=== PATIENT | male | born 1975 | race Hispanic/Latino ===

== ENCOUNTER 2018-03-07 20:48 | Inpatient (IN) | payer OTHER ==
[~2018-03-07 20:48] MED LIST: ISOVUE-370 76%-LOCM 1 ML ONE
[2018-03-07] MEDS ORDERED: Acetaminophen 500 MG TAB ONE (21:15)
--- NOTE | 2018-03-07 21:45 | RAD ---
PORTABLE CHEST ONE VIEW: 03/07/18 at 8:31 p.m. HISTORY: Chest pain. FINDINGS: The heart size is normal. There is elevation of the right hemidiaphragm. No lobar consolidation, pneu mothoraces, fallon pulmonary edema or pleural effusions are seen. IMPRESSION: No acute process. POS: [facility]
[2018-03-07] MEDS ORDERED: Ketorolac Tromethamine 60 MG/2 ML VIAL ONE (21:55)
[2018-03-07 22:40] LABS: Hemoglobin 13.2 g/dL (14.0-18.0); Mean Corpuscular HGB CONC 35.6 g/dL (32.0-36.0); Mean Corpuscular Hemoglobin 32.8 pg (27.0-31.0); Mean Platelet Volume 6.2 fL (7.4-10.4); Platelet Count 314 thou/uL (130-400); RBC Distribution Width 11.3 % (11.5-14.5); Red Blood Cell (RBC) Count 4.02 mill/uL (4.70-6.10)
[2018-03-07 22:54] LABS: Band 12 % (5-11); Lymphocytes 5 % (21-51); MDiff Complete? YES; Monocytes 8 % (0-10); Neutrophil 75 % (42-75)
[2018-03-07 22:55] LABS: Anion Gap 15 mmol/L (10-20); BUN (Urea Nitrogen) 14 mg/dL (8.9-20.6); Calc. Creatinine Clearance 0 mL/min (70-130); Calcium 8.8 mg/dL (7.8-10.44); Carbon Dioxide 21 mmol/L (22-29); Chloride 104 mmol/L (98-107); Estimated GFR-MDRD 90; Glucose 129 mg/dL (70-105); Potassium 3.9 mmol/L (3.5-5.1); Sodium 136 mmol/L (136-145)
--- NOTE | 2018-03-07 23:45 | CT ---
CT PULMONARY ANGIOGRAM WITH IV CONTRAST AND 3D POSTPROCESSIN03/07/18 HISTORY: Right sided chest pain, cough, fever, inability to take a deep breath. FINDINGS: There is good contrast opacification of the pulmonary artery vasculature without filling defects to s uggest pulmonary embolism. The thoracic aorta is well opacified without aneurysm or dissection. No pl eural or pericardial effusions are seen. There are scattered patchy focal areas of consolidation, niharika e with internal cavities. No pleural or pericardial effusions are seen. No pneumothoraces identified. There are degenerative changes in the spine. IMPRESSION: 1. No CT evidence of pulmonary embolism. 2. Scattered patchy focal areas of consolidation, some with cavitation. These are most likely du e to infection, less likely malignancy/metastatic disease. A followup exam is recommended after a cou rse of antibiotics. CODE T POS: [facility]
[2018-03-08] MEDS ORDERED: Cefepime 2 GM VIAL ONE (00:45)
[2018-03-08 01:06] LABS: Bilirubin Negative (Negative); Blood, Urine Negative (Negative); Clarity CLEAR (Clear); Glucose, Urine (Dipstick) Negative (Negative); Leukocyte Negative (Negative); Nitrite Negative (Negative); Protein, Urine (Dipstick) Negative (Neg-Trace); pH, Urine 6.5 (5.0-9.0)
[2018-03-08 01:10] LABS: Specific Gravity, Urine 1.045 (1.002-1.036)
[2018-03-08] MEDS ORDERED: Tuberculin PPD 0.1 ML VIAL I-DERMAL SCH (02:15)
[2018-03-08] MEDS ORDERED: HYDROcodone/Acetaminophen 5/325 mg Tablet ONE (02:19)
[2018-03-08 02:28] LABS: Troponin I Less than 0.010 ng/mL (< 0.028)
[2018-03-08 02:38] LABS: Amphetamine Not Detected (NotDetected); Barbiturates Screen Not Detected (NotDetected); Benzodiazepine Screen Not Detected (NotDetected); Cocaine Metabolite Screen Not Detected (NotDetected); Medtox Control Line Valid? VALID (VALID); Medtox Reader # READER 4; Methadone Not Detected (NotDetected); Methamphetamine Not Detected (NotDetected); Opiate Screen Not Detected (NotDetected); Oxycodone Screen Not Detected (NotDetected); Phencyclidine (PCP) Not Detected (NotDetected); THC/Cannabinoid Screen Not Detected (NotDetected); Tricyclic Screen Not Detected (NotDetected)
[2018-03-08] MEDS ORDERED: Enoxaparin Sodium 40 MG/0.4 ML SYRINGE SC SCH (03:00)
[2018-03-08 03:10] LABS: HIV (1/2) Antibody/Antigen Non-Reactive (NonReactive); HIV 1/2 INDEX 0.17 S/CO (<1.00)
--- NOTE | 2018-03-08 03:15 | PDOC.FPRHP ---
- History of Present Illness Chief Complaint: Lung pain History of Present Illness: 43 yo previously healthy incarcerated male presents for 1 day hx of "lung pain" . Pain was pleuritic, started in his rt back and wrapped around to the front, described as sharp in nature and 8/10 on exam. Pain began 1 night prior, waking pt out of sleep, and was constant. Certain movements made the pain worse such as turning his head, walking, and deep breathing. Staying still helped the pain , and medicine helped the pain. Today he started having fevers, headache, feeling SOB, and sweating. Pt mentioned a bump on his rt jawline that he thought was a pimple that started yesterday. He tried to "pop" it. He received antibiotics for the bump from the [facility] staff. He went to see a dentist and got an xray because there was concern for an oral abscess, but pt stated that it turned out normal. Pt denied cough, nausea/vomiting, or any weight changes. In the ED, pt received NS 2500 ml, 2g cefepime and 1g vancomycin. CXR was normal. CTA showed scattered patchy focal areas of consolidation with some cavitation. He was sent to medical floor to a negative pressure room because of concern for TB. - Allergies/Adverse Reactions Allergies Allergy/AdvReac Type Severity Reaction Status Date / Time No Known Drug Allergies Allergy Verified 03/08/18 03:57 - Home Medications Medication Instructions Recorded Confirmed Type No Known [No Known] 03/08/18 03/08/18 History - History PMHx: none PSHx: none FHx: DM and HTN in mother; denied heart problems or cancers Social: 23 PY hx, denied alcohol or drug use - Review of Systems General: reports: fever/chills, other (denied weight loss, + for headaches) Eyes: denies: vision changes ENT: reports: other (denied sore throat). denies: nasal congestion, rhinorrhea Respiratory: reports: shortness of breath. denies: cough, congestion Cardiovascular: reports: chest pain. denies: edema Gastrointestinal: denies: nausea, vomiting, diarrhea, constipation, abdominal pain, GI bleeding Genitourinary: denies: dysuria Skin: denies: rashes Neurological: denies: numbness, weakness Psychological: denies: anxiety, depression - Vital signs BP 121/19, P100, R 32, Tmax 103.2, O2 97 on RA - Physical Exam Constitutional: awake, alert and oriented, other (Patient in obvious pain/ distress, appears tired, sweating, shaking) HEENT: normocephalic and atraumatic, PERRLA, EOMI, conjunctiva clear Chest: no-tender to palpation Heart: RRR, normal S1/S2, no murmurs/rubs/gallops, pulses present Lungs: other (crackles on left base, quiet expiratory wheeze on rt base) Abdomen: soft, non-tender, bowel sounds present, no masses/distention Musculoskeletal: normal structure, normal tone Skin: good turgor, capillary refill <2 seconds Psychiatric: good judgment and insight FMR H&P: Results - Labs Result Diagrams: 03/07/18 22:29 03/07/18 22:29 Lab results: WBC 15.0 thou/uL (4.8-10.8) H 03/07/18 22:29 Hgb 13.2 g/dL (14.0-18.0) L 03/07/18 22: Hct 37.0 % (42.0-52.0) L 03/07/18 22:29 MCV 92.0 fL (78.0-98.0) 03/07/18 22: Plt Count 314 thou/uL (130-400) 03/07/18 22:29 Band Neuts % (Manual) 12 % (5-11) H 03/07/18 22:29 Sodium 136 mmol/L (136-145) 03/07/18 22:29 Potassium 3.9 mmol/L (3.5-5.1) 03/07/18 22:29 Chloride 104 mmol/L (98-107) 03/07/18 22:29 Carbon Dioxide 21 mmol/L (22-29) L 03/07/18 22:29 BUN 14 mg/dL (8.9-20.6) 03/07/18 22:29 Creatinine 0.92 mg/dL (0.6-1.3) 03/07/18 22: Glucose 129 mg/dL (70-105) H 03/07/18 22:29 Lactic Acid 0.9 mmol/L (0.5-2.2) 03/07/18 22: Calcium 8.8 mg/dL (7.8-10.44) 03/07/18 22:29 Urine Ketones Negative mg/dL (Negative) 03/08/18 00:56 Urine Blood Negative (Negative) 03/08/18 00:56 Urine Nitrite Negative (Negative) 03/08/18 00:56 Ur Leukocyte Esterase Negative (Negative) 03/08/18 00:56 FMR H&P: A/P - Problem List (1) Atypical chest pain Current Visit: No Status: Acute Code(s): R07.89 - OTHER CHEST PAIN (2) Sepsis Current Visit: No Status: Acute Code(s): A41.9 - SEPSIS, UNSPECIFIED ORGANISM - Plan 43 yo previously healthy incarcerated male presents with atypical chest pain, probably 2/2 to pneumonia. Atypical chest pain probably 2/2 to pneumonia -Pleuritic chest pain, fever, headache, tachycardia, tachypnea, -CTA: showing patchy pleural infiltrates and cavitary lesions (at apex) -EKG: shows sinus tach -Trop negx1 -Incarcerated with cavitary lesions, so pt at risk for TB- placed in negative pressure room. No hx of weight loss or cough, pain and fevers appear to be sudden onset. Quantiferon gold, TB skin test pending -Urine legionella antigen, strep pneumo antigen, HIV, UDS pending -Blood cultures pending -Cefepime and Vanc scheduled (03/07) Pneumonia -CTA showing patchy pleural infiltrates and cavitary lesions (at apex) -See above Sepsis -On presentation pt had fever, elevated WBC, tachycardia, tachypnea, with probable source of lung -Pt received Cefepime and Vanc -blood cultures pending -fluid resuscitated with 2500 ml NS FMR H&P: Upper Level - Pertinent history 43M from [facility] presents with complaint of 1 day chest pain. It started this morning. He never had this type of pain before. Located at mid back, right side. Worse with deep breathing . Described as sharp, radiating to front chest. No relieving factor. No known inciting factor. Associated with a fever that started same time. Unknown how high fever was. Recently he was sick and had an unknown antibiotic for bump on his skin. He does not know what it is. PMH: Patient denies cardiac, pulm or oncological issues. PSH: Denies surgery Allergies: NKDA Med: Denies medication beside recent abx for skin issue FHx: Denies family history of cardiac or pulm issues Social: Incarcerated. Denies drug use. Hx tobacco use. ROS: Gen: Endorse fever HEENT: Denies cough. Endorses a bump on his chin that is being treated with abx from half-way. CV: RRR with no apparent m/g/r Resp: Endorses dyspnea, dyspnea with deep breathing. GI: Deny abd pain, nausea : Denies dysuria Derm: Endorse skin nodule under chin in lomas line that is tender. - Pertinent findings Gen: NAD, obese HEENT: Normocephalic, sclera not injected, .5 cm nodule palpated on along right mandible Resp: Good air movement. Crackles heard on left lung field. CV: RRR with no apparent m/g/r Abg: Normoactive bowel, not tneder to palpation. Ext: No edema. Psych: Grossly alert and oriented Neuro: No obvious focal deficit. WBC 15 Trop 0.01 Lactic acid 0.9 UA: Neg UDS: Neg CXR: No acute process CTA: No PE, area of focal opacities with cavitary lesion. - Plan Date/Time: 03/08/18 0309 I, [Kenton Dawson], have evaluated this patient and agree with findings/plan as outlined by underwriting internship resident. Pertinent changes/additions are listed here. 1. Healthcare acquired pneumonia: Chest pain is likely pleuritic in nature, secondary to likely infection. Patient from half-way, with CT scan concerning for possible pulmonary infection. Treatment plan for vancomycin 1.25 g q 12 hr, cefepime 2 g q 8hr. Additional studies of legionella and strep antigen. Quantiferon gold/tb skin for TB rule out. 2. Sepsis secondary to pneumonia: Patient been adequately resuscitated. Will treat as in problem 1.
[2018-03-08] MEDS ORDERED: Ondansetron HCl/PF 4 MG/2 ML Vial IVP PRN (03:19)
[2018-03-08] MEDS ORDERED: Sodium Chloride 0.9% 1,000 ML IV SCH (03:19)
[2018-03-08] MEDS ORDERED: Ondansetron ODT 4 MG TAB SL PRN (03:19)
[2018-03-08] MEDS: Acetaminophen 325 MG TAB PO PRN ×2 (03:36→13:15)
[2018-03-08 05:55] LABS: Hemoglobin 12.3 g/dL (14.0-18.0); Mean Corpuscular HGB CONC 33.9 g/dL (32.0-36.0); Mean Corpuscular Hemoglobin 31.9 pg (27.0-31.0); Mean Platelet Volume 6.6 fL (7.4-10.4); Platelet Count 280 thou/uL (130-400); RBC Distribution Width 11.6 % (11.5-14.5); Red Blood Cell (RBC) Count 3.84 mill/uL (4.70-6.10); White Blood Cell (WBC) Count 15.5 thou/uL (4.8-10.8)
[2018-03-08 06:02] LABS: Anion Gap 15 mmol/L (10-20); BUN (Urea Nitrogen) 13 mg/dL (8.9-20.6); Calc. Creatinine Clearance 121 mL/min (70-130); Calcium 8.1 mg/dL (7.8-10.44); Carbon Dioxide 20 mmol/L (22-29); Chloride 106 mmol/L (98-107); Estimated GFR-MDRD 85; Glucose 122 mg/dL (70-105); Potassium 4.2 mmol/L (3.5-5.1); Sodium 137 mmol/L (136-145)
[2018-03-08 06:12] LABS: Band 21 % (5-11); Lymphocytes 1 % (21-51); MDiff Complete? YES; Monocytes 7 % (0-10); Neutrophil 71 % (42-75)
--- NOTE | 2018-03-08 06:18 | PDOC.FM ---
- Subjective Subjective: Mr Soria is a 43yo male presenting with SOB, diaphoresis, BYRD and fever. Reports 5lb wt loss since last weighed, rigors and chills yesterday morning. Another inmate complained of similar "pinched nerve" back pain the day prior. Reports growing up in [place] and has not traveled anywhere else in [place] or out of [place] or cave exposure. Denies cough, hemoptysis, mouth ulcers, iv drug use. - Objective MAR Reviewed: Yes Vital Signs & Weight: Vital Signs (12 hours) Temp Pulse Resp BP Pulse Ox 03/08/18 03:10 99.9 F H 83 16 102/62 93 L Weight Weight 86.438 kg Result Diagrams: 03/08/18 01:53 03/08/18 01:53 Phys Exam - Physical Examination Constitutional: NAD nodule on right mandible Cardiovascular: RRR, no significant murmur Gastrointestinal: soft, non-tender, positive bowel sounds Musculoskeletal: no edema, pulses present Psychiatric: normal affect, A&O x 3 Skin: cap refill <2 seconds Dx/Plan (1) Pneumonia Code(s): J18.9 - PNEUMONIA, UNSPECIFIED ORGANISM Status: Acute (2) Atypical chest pain Code(s): R07.89 - OTHER CHEST PAIN Status: Acute (3) Sepsis Code(s): A41.9 - SEPSIS, UNSPECIFIED ORGANISM Status: Acute - Plan Plan: Sepsis 2/2 suspected pneumonia - Initially tachycardic 100, fever 103.2, WBC 15.5, tachypnea 32 - Currently incarcerated - CTA: patchy infilatrates with cavitary lesions in apex - Cont Cefepime an Vanc - Quantiferon gold, TB skin test for TB r/o - Urine legionella pending, pt not hyponatremic, denies diarrhea - Strep pneumo Ag pending - HIV neg - Blood & sputum cx pending - Checking RPR, Hep B & C - 2.5L NS in ED - LR @ 125ml/hr - Consult Pulm Atypical Chest pain, likely due to pneumonia - Trops neg x1 - CTA neg for PE Current Incarceration - UDS neg - Need to rule out TB with cavitary lesions Code Status: Full code
--- NOTE | 2018-03-08 08:52 | HP ---
I have discussed the case with Dr. Latanya Ya and agree with her assessment and plan. I have examined the patient. Mr. Soria is incarcerated 43-year-old male who presented with several days o f productive cough, chest pain, shortness of breath. Subsequent workup upon arriving in our hospital involved a chest x-ray which was normal, but a CT scan which showed possible cavitary lesions consis tent with tuberculosis. The patient has no history of exposure to tuberculosis to his knowledge. He has been admitted for antibiotics and for further workup of possible tuberculosis. PHYSICAL EXAMINATION: GENERAL: He is awake, alert, in no distress. No respiratory distress. He is alert and oriented. VITAL SIGNS: His blood pressure is 120/85, his pulse rate is 92, respirations are currently 24. His initial temperature was 103.2. EARS, NOSE AND THROAT: No erythema or exudate. NECK: Supple. CARDIAC: The PMI is in the fifth intercostal space. No guarding, no murmurs or rubs noted. LUNGS: There are moist rales at the right mid lung field and left base. No consolidation noted. No respiratory distress or use of accessory muscles. NEUROLOGIC: No focal deficits. LABORATORY DATA: CBC is 15,000, hemoglobin is 13.2, hematocrit is 37 with an MCV of 92. Chemistries : Sodium 136, potassium 3.9, chloride 104, bicarbonate 21, BUN 14, creatinine 0.92, glucose 129. Ur ine clear. Toxicology screen negative. HIV negative. Chest x-ray: No acute process. Chest CT, no evidence of pulmonary embolus. Scattered patchy focal areas of consolidation, some cough with cavitation. These are felt to be most likely due to infectio n less likely due to malignancy. ASSESSMENT: Pneumonia, possible tuberculosis. PLAN: We will continue broad spectrum antibiotics. We have obtained a QuantiFERON gold skin test. We will obtain orchestra leader sputum for AFB stain and culture.
[2018-03-08] MEDS: Cefepime 2 GM in Sodium Chloride 0.9% 100 ML IVPB SCH ×2 (09:13→16:52)
[2018-03-08 09:51] LABS: HBSAB Concentration 1.77 mIU/mL; HBSAg Index 0.21 S/CO (0-0.99); Hep B Core Total Ab Non-Reactive (NonReactive); Hep B Core Total Index 0.07 S/CO (0-0.79); Hep B Surf AB Non-Reactive (NonReactive); Hep B Surf Ag Non-Reactive S/CO (NonReactive); Hep C IgG Ab Non-Reactive (NonReactive); Hep C Index 0.16 S/CO (0-0.79)
[2018-03-08] MEDS: Vancomycin HCl 1.25 GM in Sodium Chloride 0.9% 250 ML 250 ML IVPB SCH ×2 (10:38→20:29)
[2018-03-08 10:43] VITALS: BMI 31.6
[2018-03-08] MEDS ORDERED: Cefepime 2 GM in Sodium Chloride 0.9% 100 ML IVPB SCH ×2 (13:00→21:00)
[2018-03-08 13:09] LABS: Syphilis Antibody Nonreactive (Nonreactive); Syphilis Antibody Index 0.04 S/CO (<1.00 Non-Reactive)
[2018-03-08] MEDS: guaiFENesin/Codeine Phosphate 200 mg/20 mg 10 ml UD Cup PO PRN ×2 (14:56→21:01)
[2018-03-08] MEDS: Lactated Ringer's 1,000 ML IV SCH ×2 (14:56→16:54)
[2018-03-08] MEDS: Ibuprofen 600 MG TAB PO PRN ×2 (15:40→22:54)
[2018-03-08 16:33] LABS: Strep pneumo Urine Ag NEGATIVE (NEGATIVE)
[2018-03-08 16:34] LABS: Legionella Urinary Ag Negative (Negative)
[2018-03-09] MEDS: Cefepime 2 GM in Sodium Chloride 0.9% 100 ML IVPB SCH ×3 (01:10→17:15)
[2018-03-09] MEDS: Lactated Ringer's 1,000 ML IV SCH ×3 (01:13→14:09)
--- NOTE | 2018-03-09 05:38 | PDOC.FM ---
- Subjective Subjective: Mr Soria is a 43yo male presenting with SOB, diaphoresis, BYRD and fever. Yesterday he developed a new cough. He thinks it could be related to the new oxygen demand requiring nasal cannula. He also reports some nausea related to new sputum production. No events overnight. Concerned about submandibular swelling related to nodule mention in H&P, reports extension. Denies pain. Voiding and stooling. - Objective MAR Reviewed: Yes Vital Signs & Weight: Vital Signs (12 hours) Temp Pulse Resp BP BP Pulse Ox 03/09/18 02:54 98 F 76 18 107/67 94 L 03/09/18 01:00 17 96 03/08/18 20:10 98.4 F 75 20 103/65 103/65 95 Weight Admit Weight 86.183 kg Weight 86.183 kg I&O: 03/07/18 03/08/18 03/09/18 06:59 06:59 06:59 Intake Total 840 Balance 840 Result Diagrams: 03/09/18 06:56 03/09/18 06:56 <Gilma Garcia - Last Filed: 03/09/18 10:44> - Objective Vital Signs & Weight: Vital Signs (12 hours) Temp Pulse Resp BP BP Pulse Ox 03/09/18 10:53 99.1 F 71 16 103/67 96 03/09/18 07:32 99.6 F 80 18 118/73 92 L 03/09/18 02:54 98 F 76 18 107/67 94 L 03/09/18 01:00 17 96 Weight Admit Weight 86.183 kg Weight 86.183 kg I&O: 03/08/18 03/09/18 03/10/18 06:59 06:59 06:59 Intake Total 2490 Output Total 1300 Balance 1190 Result Diagrams: 03/09/18 06:56 03/09/18 06:56 <Ayden Davenport - Last Filed: 03/09/18 11:43> Phys Exam - Physical Examination Constitutional: NAD HEENT: moist MMs, oral pharynx no lesions submanidular swelling and sublingual gland swelling Neck: no nodes wheezing in right lung base Cardiovascular: RRR, no significant murmur Gastrointestinal: soft, non-tender, positive bowel sounds Musculoskeletal: pulses present Psychiatric: normal affect, A&O x 3 Skin: cap refill <2 seconds <Gilma Garcia - Last Filed: 03/09/18 10:44> Dx/Plan (1) Pneumonia Code(s): J18.9 - PNEUMONIA, UNSPECIFIED ORGANISM Status: Acute (2) Atypical chest pain Code(s): R07.89 - OTHER CHEST PAIN Status: Acute (3) Sepsis Code(s): A41.9 - SEPSIS, UNSPECIFIED ORGANISM Status: Acute - Plan Plan: Sepsis 2/2 suspected pneumonia - Initially tachycardic 100, fever 103.2, WBC 15.5, tachypnea 32 - Currently incarcerated - CTA: patchy infilatrates with cavitary lesions in apex - Cont Cefepime and Vanc - Awaiting results of Quantiferon gold, TB skin test for TB r/o - Urine legionella, Strep pneumo Ag neg - HIV, RPR, Hep B & C neg - Blood & sputum cx pending - Guaifenesin PRN for cough - Currently requiring 2L O2 by NC - Consulted Pulm Submandibular/sublingual gland swelling - Extension of swelling - Ordered US - Check Amylase Atypical Chest pain, likely due to pneumonia - Trops neg x1 - CTA neg for PE Current Incarceration - UDS neg - Need to rule out TB with cavitary lesions Code Status: Full code <Gilma Garcia - Last Filed: 03/09/18 10:44> Attending Addendum - Attending Addendum Date/Time: 03/09/18 [id number] I personally evaluated the patient and discussed the management with Dr. Garcia I agree with the History, Examination, Assessment and Plan documented above with any addition or exceptions noted below. Patient concern with right sided submental swelling into neck questionable folliculitis verse salioadenitis right sublingual glands questionable sialioadenitis verse folliculitis check amylase and soft tissue US today.PPD Skin test negative so far QFT send out. <Ayden Davenport - Last Filed: 03/09/18 11:43>
[2018-03-09] MEDS: Ibuprofen 600 MG TAB PO PRN ×3 (06:48→23:11)
[2018-03-09 07:14] LABS: #Eosinphils 0.1 thou/uL (0.0-0.7); #Lymphocytes 1.2 thou/uL (1.20-3.40); #Monocytes 1.2 thou/uL (0.11-0.59); #Neutrophils 13.2 thou/uL (1.40-6.50); %Basophils 0.1 % (0.0-1.0); %Eosinophils 0.8 % (0.0-10.0); %Lymphocytes 7.6 % (21.0-51.0); %Monocytes 7.8 % (0.0-10.0); %Neutrophils 83.8 % (42.0-75.0); Hemoglobin 12.7 g/dL (14.0-18.0); Mean Corpuscular HGB CONC 31.3 g/dL (32.0-36.0); Mean Corpuscular Hemoglobin 29.7 pg (27.0-31.0); Mean Platelet Volume 6.9 fL (7.4-10.4); Platelet Count 279 thou/uL (130-400); RBC Distribution Width 11.7 % (11.5-14.5); Red Blood Cell (RBC) Count 4.29 mill/uL (4.70-6.10); White Blood Cell (WBC) Count 15.8 thou/uL (4.8-10.8)
[2018-03-09 07:28] LABS: Anion Gap 14 mmol/L (10-20); BUN (Urea Nitrogen) 6 mg/dL (8.9-20.6); Calc. Creatinine Clearance 154 mL/min (70-130); Calcium 8.6 mg/dL (7.8-10.44); Carbon Dioxide 21 mmol/L (22-29); Chloride 107 mmol/L (98-107); Estimated GFR-MDRD Greater than 90; Glucose 116 mg/dL (70-105); Potassium 3.9 mmol/L (3.5-5.1); Sodium 138 mmol/L (136-145)
[2018-03-09] MEDS: Enoxaparin Sodium 40 MG/0.4 ML SYRINGE SC SCH (10:05)
[2018-03-09] MEDS: Vancomycin HCl 1.25 GM in Sodium Chloride 0.9% 250 ML 250 ML IVPB SCH ×2 (10:05→18:47)
[2018-03-09] MEDS ORDERED: ISOVUE-370 76%-LOCM 1 ML ONE (12:04)
--- NOTE | 2018-03-09 14:26 | ULT ---
ULTRASOUND SOFT TISSUE OTHER: Date: 03/09/18 HISTORY: Submandibular swelling and tenderness. COMPARISON: None. FINDINGS: In the right submandibular area, there is skin thickening, as well as swelling within the superficial soft tissue fat. There is complex nondrainable fluid collection in the submandibular area on the rig ht. There does appear to be a linear tract extending to near the chin. IMPRESSION: Right submandibular/submental subcutaneous inflammation with a linear tract. This may represent siala denitis with possibility of a obstructive nonvisualized submandibular gland stone. CT neck recommende d with contrast. POS: [facility]
[2018-03-09] MEDS: guaiFENesin/Codeine Phosphate 200 mg/20 mg 10 ml UD Cup PO PRN ×2 (14:58→23:11)
--- NOTE | 2018-03-09 17:18 | CT ---
NECK CT SOFT TISSUES WITH CONTRAST 03/09/18 INDICATION: Progressive size mass of the mental region. FINDINGS: There is abnormal reticulated, increased density of the mental soft tissue in submental region with a ssociated skin thickening. There is a focal area of fluid density, which is not well encapsulated ind icative of an area of edema/organizing complex fluid such was phlegmon, although a well formed draina ge abscess is not visualized. There is soft tissue irregularity at the ventral skin surface of the me ntal/submental region. Correlate with physical exam. There is motion artifact which distorts the imag ing anatomy of the neck. No discrete thyroid lesion. An incidentally imaged cavitary lesion involving each upper lobe in addition to scattered areas of pulmonary parenchymal opacity are present incomple tely assessed. Findings were documented on a recent chest CT 03/07/18. There has been notable progressi on with regard to opacity of the right upper lobe surrounding the previously documented cavitary lesi on. No discrete lesion of the salivary glands identified. The aerodigestive tract is distorted by pat ient motion and not reliably assessed. There are scattered bilateral borderline sized cervical chain lymph nodes as well as mildly prominent nodes at the imaged upper mediastinum. Retropharyngeal/prever tebral region not well assessed due to distortion by motion. The thyroid gland is grossly unremarkabl e. IMPRESSION: 1. Findings to indicate cellulitis of the mental/submental region with a focal area of organizin g complex fluid such as phlegmon, although a well formed drainable abscess is not demonstrated. The r egion of organizing fluid is located at the right submental region, underlying skin surface and while ill-defined, measures approximately 1.5 cm in diameter. 2. Progressive abnormalities including cavitary lesions and consolidation of the upper lung zone s. Continued followup as per previous recommendations on CT exam, 03/07/18, are again recommended. 3. Nonspecific adenopathy, which may be reactive or neoplastic. POS: [facility]
--- NOTE | 2018-03-09 19:52 | CON ---
DATE OF SERVICE: 03/09/2018 SUBJECTIVE: Mr. Soria is a 43-year-old male who was incarcerated in 05/2017. He said he had PPD going into the C that was negative. He says he was feeling fine until recently when he developed swelling under his jaw. He then developed fever. He was started on antibiotics at the [facility]. He was sent here for further workup. CT scanning of his chest showed an apical lesion with small cavities and then an upper lobe lesion on the left that was smaller with a small cavity in it. He says he is feeling better since he was admitted. PAST MEDICAL HISTORY: Otherwise unremarkable. FAMILY HISTORY: Negative for lung disease at an early age. SOCIAL HISTORY: He is currently not smoking or using drugs. REVIEW OF SYSTEMS: 10 point system review completed, otherwise negative. PHYSICAL EXAMINATION: VITAL SIGNS: He is afebrile, temperature is 99, heart rate 71, respiratory rate 16, oximetry is 96, blood pressure 103/67. He got up to 102.3 yesterday. HEENT: Pupils are equal. Sclerae anicteric. NECK: Supple. He has a lomas under his right jaw in the submandibular area getting close to his chin. There are areas of fullness in this area. There was an x-ray field radio technician ultrasounding this area when I arrived in the room. NECK: Supple, without lymphadenopathy. LUNGS: Clear. HEART: Regular rhythm. S1 and S2 are normal. ABDOMEN: Soft and nontender. EXTREMITIES: No clubbing, cyanosis, or edema. LABORATORY DATA: White count 15.8, hemoglobin 12.7, platelets 279. Electrolytes were unremarkable. Blood cultures are negative so far. IMPRESSION AND PLAN: Bilateral nodular infiltrates with cavities. Given that he had a negative PPD year ago, it becomes less likely that this is reactivation of tuberculosis. It is not impossible, but less likely. With swelling under his mandible, I would wonder about folliculitis or localized Staph infection that became bacteremic and seated his lungs. Other gram-negative pathogens and anaerobes also must be considered, although he is young for an anaerobic pneumonia. This is an atypical location. I would continue for now with broad antimicrobial therapy. I would not recommend bronchoscopy at this point. We will continue his sputum collections. This is a 70 minute consult with greater than 50% of time spent on unit with coordination of care. BERT
[2018-03-10] MEDS: Cefepime 2 GM in Sodium Chloride 0.9% 100 ML IVPB SCH ×3 (00:51→16:51)
[2018-03-10] MEDS: Lactated Ringer's 1,000 ML IV SCH (00:52)
[2018-03-10] MEDS: Vancomycin HCl 1.25 GM in Sodium Chloride 0.9% 250 ML 250 ML IVPB SCH ×3 (02:04→18:03)
[2018-03-10] MEDS: READ PPD TEST SITE PO SCH (03:00)
[2018-03-10 04:55] LABS: #Eosinphils 0.1 thou/uL (0.0-0.7); #Lymphocytes 1.8 thou/uL (1.20-3.40); #Monocytes 0.8 thou/uL (0.11-0.59); %Basophils 0.2 % (0.0-1.0); %Eosinophils 1.1 % (0.0-10.0); %Lymphocytes 13.8 % (21.0-51.0); %Monocytes 6.4 % (0.0-10.0); %Neutrophils 78.4 % (42.0-75.0); Hemoglobin 11.3 g/dL (14.0-18.0); Mean Corpuscular HGB CONC 34.3 g/dL (32.0-36.0); Mean Corpuscular Hemoglobin 32.1 pg (27.0-31.0); Mean Corpuscular Volume 93.6 fL (78.0-98.0); Mean Platelet Volume 6.9 fL (7.4-10.4); Platelet Count 290 thou/uL (130-400); RBC Distribution Width 11.4 % (11.5-14.5); Red Blood Cell (RBC) Count 3.51 mill/uL (4.70-6.10); White Blood Cell (WBC) Count 12.7 thou/uL (4.8-10.8)
[2018-03-10 05:24] LABS: Anion Gap 12 mmol/L (10-20); BUN (Urea Nitrogen) 6 mg/dL (8.9-20.6); Calc. Creatinine Clearance 168 mL/min (70-130); Calcium 8.5 mg/dL (7.8-10.44); Carbon Dioxide 23 mmol/L (22-29); Chloride 106 mmol/L (98-107); Estimated GFR-MDRD Greater than 90; Glucose 114 mg/dL (70-105); Potassium 3.8 mmol/L (3.5-5.1); Sodium 137 mmol/L (136-145)
--- NOTE | 2018-03-10 05:39 | PDOC.FM ---
- Subjective Subjective: Mr Soria is a 43yo male presenting with SOB, diaphoresis, BYRD and fever. No events overnight. Denies pain. Voiding and stooling. Reports improved shortness of breath. Endorses chills. - Objective MAR Reviewed: Yes Vital Signs & Weight: Vital Signs (12 hours) Temp Pulse Resp BP Pulse Ox 03/09/18 20:00 98.9 F 81 20 103/63 99 Weight Admit Weight 86.183 kg Weight 86.183 kg I&O: 03/08/18 03/09/18 03/10/18 06:59 06:59 06:59 Intake Total 2490 3100 Output Total 1300 2400 Balance 1190 700 Result Diagrams: 03/10/18 04:23 03/10/18 04:23 <Gilma Garcia - Last Filed: 03/10/18 09:04> - Objective Vital Signs & Weight: Vital Signs (12 hours) Temp Pulse Resp BP Pulse Ox 03/10/18 14:00 100.6 F H 03/10/18 07:36 98.7 F 74 16 114/71 95 03/10/18 07:26 98.9 F 81 20 Weight Admit Weight 86.183 kg Weight 86.183 kg I&O: 03/09/18 03/10/18 03/11/18 06:59 06:59 06:59 Intake Total 2490 5950 Output Total 1300 5000 Balance 1190 950 Result Diagrams: 03/10/18 04:23 03/10/18 04:23 <Ayden Davenport - Last Filed: 03/10/18 15:08> Phys Exam - Physical Examination Constitutional: NAD mental and submental edema Respiratory: wheezing present crackles in bilateral bases Cardiovascular: RRR, no significant murmur Gastrointestinal: soft, non-tender, positive bowel sounds Musculoskeletal: pulses present Psychiatric: normal affect, A&O x 3 Skin: cap refill <2 seconds <Gilma Garcia - Last Filed: 03/10/18 09:04> Dx/Plan (1) Gastroenteritis Code(s): K52.9 - NONINFECTIVE GASTROENTERITIS AND COLITIS, UNSPECIFIED Status : Acute (2) Pneumonia Code(s): J18.9 - PNEUMONIA, UNSPECIFIED ORGANISM Status: Ruled-out (3) Atypical chest pain Code(s): R07.89 - OTHER CHEST PAIN Status: Acute (4) Sepsis Code(s): A41.9 - SEPSIS, UNSPECIFIED ORGANISM Status: Acute - Plan Plan: Sepsis 2/2 suspected pneumonia - Initially tachycardic 100, fever 103.2, WBC 15.5, tachypnea 32 - Currently incarcerated - CTA: patchy infilatrates with cavitary lesions in apex - Cont Cefepime and Vanc - Awaiting results of Quantiferon gold, TB skin test for TB r/o - Urine legionella, Strep pneumo Ag neg - HIV, RPR, Hep B & C neg - Blood & sputum cx pending - AFB smear neg - Bld cx NGTD at 48hrs - Guaifenesin PRN for cough - Consulted Pulm, apprec recs - Pulm: likely submandibular infection became bacteremic and seated his lungs. Submandibular/sialadenitis - US: Right submandibular subQ inflammation with linear tract. May represent sialadenitis. - CT: Cellulitis of mental/submental region with focal area of organizing complex fluid such as phlegmon at right submental 1.5cm. Drainable abscess not demonstrated. - Amylase 30 - Warm compresses - Cefepime and Vanc as above - Continue to monitor - Recommend shaving lomas and application of bactoban Atypical Chest pain, likely due to pneumonia - Trops neg x1 - CTA neg for PE Current Incarceration - UDS neg - Need to rule out TB with cavitary lesions Code Status: Full code <Gilma Garcia - Last Filed: 03/10/18 09:04> Attending Addendum - Attending Addendum Date/Time: 03/10/18 1025 I personally evaluated the patient and discussed the management with Dr. Garcia I agree with the History, Examination, Assessment and Plan documented above with any addition or exceptions noted below.Patient feeling much improved continue IV antibiotic, PPD appears negative so far. Submental phlegmon not reaching level of I&D consideration continue to follow expectantly appreciate Pulmonology rec and evaluation. <Ayden Davenport - Last Filed: 03/10/18 15:08>
[2018-03-10] MEDS: Ibuprofen 600 MG TAB PO PRN ×3 (05:51→21:17)
[2018-03-10] MEDS: Enoxaparin Sodium 40 MG/0.4 ML SYRINGE SC SCH (08:43)
[2018-03-10 09:41] LABS: Vancomycin, Trough 14.2 ug/mL
[2018-03-10] MEDS: guaiFENesin/Codeine Phosphate 200 mg/20 mg 10 ml UD Cup PO PRN (14:19)
--- NOTE | 2018-03-10 16:31 | PRG ---
DATE OF SERVICE: 03/10/2018 SUBJECTIVE: Yang says he is feeling better. OBJECTIVE: VITAL SIGNS: He is afebrile. This morning, his temperature is 100.6 at 2:00 p.m. Blood pressure 11 7/69. LUNGS: Clear. HEART: Regular rhythm. ABDOMEN: Soft. His first sputum was negative for acid fast bacilli. Blood cultures are negative. He is still on vancomycin and cefepime. IMPRESSION: Necrotizing pneumonia. I doubt this is either nodules secondary to vasculitis such as Sandra's, although it is in the diffe rential. We will await further acid fast bacilli smears and keep other rare entities such as collagen vascular disease in mind given his young age. Given that he had a negative PPD less than a year ago becomes much less likely that this is tuberculosis.
[2018-03-10] MEDS: Mupirocin 2% Ointment 22 GM Tube TOP SCH (21:09)
[2018-03-11] MEDS: Cefepime 2 GM in Sodium Chloride 0.9% 100 ML IVPB SCH ×3 (01:12→16:50)
[2018-03-11] MEDS: Vancomycin HCl 1.25 GM in Sodium Chloride 0.9% 250 ML 250 ML IVPB SCH ×3 (01:58→17:54)
[2018-03-11] MEDS: guaiFENesin/Codeine Phosphate 200 mg/20 mg 10 ml UD Cup PO PRN ×2 (02:42→10:19)
[2018-03-11] MEDS: Ibuprofen 600 MG TAB PO PRN ×3 (02:42→20:02)
[2018-03-11] MEDS: READ PPD TEST SITE PO SCH (03:52)
[2018-03-11 04:45] LABS: #Eosinphils 0.3 thou/uL (0.0-0.7); #Lymphocytes 1.5 thou/uL (1.20-3.40); #Monocytes 0.8 thou/uL (0.11-0.59); #Neutrophils 8.6 thou/uL (1.40-6.50); %Basophils 0.3 % (0.0-1.0); %Eosinophils 2.5 % (0.0-10.0); %Lymphocytes 13.7 % (21.0-51.0); %Monocytes 6.8 % (0.0-10.0); %Neutrophils 76.7 % (42.0-75.0); Hemoglobin 12.1 g/dL (14.0-18.0); Mean Corpuscular HGB CONC 34.1 g/dL (32.0-36.0); Mean Corpuscular Hemoglobin 31.9 pg (27.0-31.0); Mean Corpuscular Volume 93.4 fL (78.0-98.0); Mean Platelet Volume 6.8 fL (7.4-10.4); Platelet Count 340 thou/uL (130-400); RBC Distribution Width 11.4 % (11.5-14.5); Red Blood Cell (RBC) Count 3.78 mill/uL (4.70-6.10); White Blood Cell (WBC) Count 11.2 thou/uL (4.8-10.8)
[2018-03-11 05:02] LABS: Anion Gap 15 mmol/L (10-20); BUN (Urea Nitrogen) 6 mg/dL (8.9-20.6); Calc. Creatinine Clearance 156 mL/min (70-130); Calcium 8.6 mg/dL (7.8-10.44); Carbon Dioxide 22 mmol/L (22-29); Chloride 104 mmol/L (98-107); Estimated GFR-MDRD Greater than 90; Glucose 113 mg/dL (70-105); Potassium 3.6 mmol/L (3.5-5.1); Sodium 137 mmol/L (136-145)
--- NOTE | 2018-03-11 05:47 | PDOC.FM ---
- Subjective Subjective: No events overnight. Denies pain. Reports improved shortness of breath. No longer requiring O2. Reports area chin is starting to feel more firm. - Objective MAR Reviewed: Yes Vital Signs & Weight: Vital Signs (12 hours) Temp Pulse Resp BP Pulse Ox 03/10/18 20:00 99.7 F H 83 18 139/75 98 Weight Admit Weight 86.183 kg Weight 86.183 kg I&O: 03/09/18 03/10/18 03/11/18 06:59 06:59 06:59 Intake Total 2490 5950 1630 Output Total 1300 5000 1430 Balance 1190 950 200 Result Diagrams: 03/11/18 03:48 03/11/18 03:48 <Gilma Garcia - Last Filed: 03/11/18 10:51> - Objective Vital Signs & Weight: Vital Signs (12 hours) Temp Pulse Resp BP Pulse Ox 03/11/18 19:40 101 F H 77 18 128/77 97 03/11/18 16:53 75 18 112/71 96 03/11/18 16:20 98.6 F 03/11/18 12:00 99.2 F Weight Admit Weight 86.183 kg Weight 86.183 kg I&O: 03/10/18 03/11/18 03/12/18 06:59 06:59 06:59 Intake Total 5950 3730 1550 Output Total 5000 3430 1800 Balance 950 300 -250 Result Diagrams: 03/11/18 03:48 03/11/18 03:48 <Ivis Collazo - Last Filed: 03/11/18 21:40> Phys Exam - Physical Examination Constitutional: NAD submandibular erythema with induratation Respiratory: clear to auscultation bilateral Cardiovascular: RRR, no significant murmur Gastrointestinal: soft, non-tender, positive bowel sounds Musculoskeletal: pulses present Psychiatric: normal affect, A&O x 3 Skin: cap refill <2 seconds <Gilma Garcia - Last Filed: 03/11/18 10:51> Dx/Plan (1) Pneumonia Code(s): J18.9 - PNEUMONIA, UNSPECIFIED ORGANISM Status: Ruled-out (2) Atypical chest pain Code(s): R07.89 - OTHER CHEST PAIN Status: Acute (3) Sepsis Code(s): A41.9 - SEPSIS, UNSPECIFIED ORGANISM Status: Acute (4) Incarceration Code(s): Z65.1 - IMPRISONMENT AND OTHER INCARCERATION Status: Chronic - Plan Plan: Staph Aureus Narcotizing pneumonia vs TB vs Vasculitis - Currently incarcerated - CTA: patchy infilatrates with cavitary lesions in apex - Quantiferon gold pending - Urine legionella, Strep pneumo Ag, PPD skin test neg - HIV, RPR, Hep B & C neg - Blood & sputum cx pending - AFB smear neg - Bld cx NGTD at 48hrs - Cont Cefepime and Vanc - Guaifenesin PRN for cough - Consulted Pulm, apprec recs - Pulm: likely submandibular infection became bacteremic and seated his lungs. Sepsis 2/2 suspected pneumonia, resolved - Initially tachycardic 100, fever 103.2, WBC 15.5, tachypnea 32 Submandibular/sialadenitis - US: Right submandibular subQ inflammation with linear tract. May represent sialadenitis. - CT: Cellulitis of mental/submental region with focal area of organizing complex fluid such as phlegmon at right submental 1.5cm. Drainable abscess not demonstrated. - Cefepime and Vanc as above - Continue warm compresses & bactoban - Continue to monitor Current Incarceration - UDS neg - Need to rule out TB with cavitary lesions Code Status: Full code <Gilma Garcia - Last Filed: 03/11/18 10:51> Attending Addendum - Attending Addendum Date/Time: 03/11/18 7826 I personally evaluated the patient and discussed the management with Dr. Garcia I agree with the History, Examination, Assessment and Plan documented above with any addition or exceptions noted below. Cavitary pneumonia: Continue IV antibiotics. Will need to discuss oral options to cover for likey suspects including staph. TB studies negative. Improving. ABrayMD <Ivis Collazo - Last Filed: 03/11/18 21:40>
[2018-03-11 09:29] LABS: Vancomycin, Trough 18.3 ug/mL
[2018-03-11] MEDS: Enoxaparin Sodium 40 MG/0.4 ML SYRINGE SC SCH (10:00)
[2018-03-11] MEDS: Mupirocin 2% Ointment 22 GM Tube TOP SCH ×2 (10:05→20:01)
--- NOTE | 2018-03-11 13:13 | PRG ---
DATE OF SERVICE: 03/11/2018 SUBJECTIVE: Dexter Soria has no new complaints. He denies cough or shortness of breath. PHYSICAL EXAMINATION: VITAL SIGNS: His temperature maximum was 100.6 yesterday at 2 o'clock. LUNGS: Completely clear. IMPRESSION: Pneumonia necrotizing. I would wonder about staph emboli given the submental folliculit is or cutaneous infection that he had. We will continue with current antimicrobial therapy until he is afebrile over 24 hours and can be swi tched to p.o. medicines. He says he is about to be paroled and will move back to [place]. I have ask ed him to find a physician to redo a CAT scan in 2-3 months. He can obtain a copy of his CT here for comparison, discussed all this with him.
[2018-03-12] MEDS: Cefepime 2 GM in Sodium Chloride 0.9% 100 ML IVPB SCH ×3 (00:43→17:13)
[2018-03-12] MEDS: Vancomycin HCl 1.25 GM in Sodium Chloride 0.9% 250 ML 250 ML IVPB SCH ×3 (01:54→18:20)
[2018-03-12] MEDS: Ibuprofen 600 MG TAB PO PRN ×2 (04:25→16:16)
[2018-03-12] MEDS: guaiFENesin/Codeine Phosphate 200 mg/20 mg 10 ml UD Cup PO PRN (04:26)
[2018-03-12 04:54] LABS: #Eosinphils 0.3 thou/uL (0.0-0.7); #Lymphocytes 1.6 thou/uL (1.20-3.40); #Monocytes 0.9 thou/uL (0.11-0.59); #Neutrophils 8.2 thou/uL (1.40-6.50); %Basophils 0.1 % (0.0-1.0); %Eosinophils 2.4 % (0.0-10.0); %Lymphocytes 14.8 % (21.0-51.0); %Monocytes 8.4 % (0.0-10.0); %Neutrophils 74.2 % (42.0-75.0); Hemoglobin 12.3 g/dL (14.0-18.0); Mean Corpuscular HGB CONC 34.4 g/dL (32.0-36.0); Mean Corpuscular Hemoglobin 32.1 pg (27.0-31.0); Mean Corpuscular Volume 93.2 fL (78.0-98.0); Mean Platelet Volume 6.4 fL (7.4-10.4); Platelet Count 381 thou/uL (130-400); RBC Distribution Width 11.4 % (11.5-14.5); Red Blood Cell (RBC) Count 3.83 mill/uL (4.70-6.10)
[2018-03-12 05:16] LABS: Anion Gap 15 mmol/L (10-20); BUN (Urea Nitrogen) 7 mg/dL (8.9-20.6); Calc. Creatinine Clearance 159 mL/min (70-130); Calcium 8.9 mg/dL (7.8-10.44); Carbon Dioxide 23 mmol/L (22-29); Chloride 102 mmol/L (98-107); Estimated GFR-MDRD Greater than 90; Glucose 106 mg/dL (70-105); Potassium 3.6 mmol/L (3.5-5.1); Sodium 136 mmol/L (136-145)
--- NOTE | 2018-03-12 05:20 | PDOC.FM ---
- Subjective Subjective: Reports feeling well this morning. Denies Shortness of breath. Concerned about infection under his chin. Febrile overnight. No other concerns. - Objective MAR Reviewed: Yes Vital Signs & Weight: Vital Signs (12 hours) Temp Pulse Resp BP Pulse Ox 03/12/18 00:00 99 F 03/11/18 21:00 99.8 F H 03/11/18 20:00 101 F H 77 18 97 03/11/18 19:40 101 F H 77 18 128/77 97 Weight Admit Weight 86.183 kg Weight 86.183 kg I&O: 03/10/18 03/11/18 03/12/18 06:59 06:59 06:59 Intake Total 5950 3730 1550 Output Total 5000 3430 1800 Balance 950 300 -250 Result Diagrams: 03/12/18 04:16 03/12/18 04:16 <Gilma Garcia - Last Filed: 03/12/18 09:12> - Objective Vital Signs & Weight: Weight Admit Weight 86.183 kg Weight 86.183 kg I&O: 03/15/18 03/16/18 03/17/18 06:59 06:59 06:59 Intake Total 1150 480 Output Total 1050 Balance 100 480 Result Diagrams: 03/12/18 04:16 03/12/18 04:16 <Ivis Collazo - Last Filed: 03/16/18 18:35> Phys Exam - Physical Examination Constitutional: NAD Respiratory: clear to auscultation bilateral Cardiovascular: RRR, no significant murmur Gastrointestinal: soft, non-tender, positive bowel sounds Psychiatric: normal affect, A&O x 3 <Gilma Garcia - Last Filed: 03/12/18 09:12> Dx/Plan (1) Pneumonia Code(s): J18.9 - PNEUMONIA, UNSPECIFIED ORGANISM Status: Ruled-out (3) Sepsis Code(s): A41.9 - SEPSIS, UNSPECIFIED ORGANISM Status: Acute (4) Incarceration Code(s): Z65.1 - IMPRISONMENT AND OTHER INCARCERATION Status: Chronic (6) Atypical chest pain Code(s): R07.89 - OTHER CHEST PAIN Status: Acute - Plan Plan: Staph Aureus Narcotizing pneumonia vs TB vs Vasculitis - Currently incarcerated - CTA: patchy infilatrates with cavitary lesions in apex - Quantiferon gold pending - Urine legionella, Strep pneumo Ag, PPD skin test neg - HIV, RPR, Hep B & C neg - Blood & sputum cx pending - AFB smear neg - Bld cx NGTD at 48hrs - Cont Cefepime and Vanc - Guaifenesin PRN for cough - Consulted Pulm, apprec recs - Pulm: likely submandibular infection became bacteremic and seated his lungs. - Fever of 101 overnight Sepsis 2/2 suspected pneumonia, resolved - Initially tachycardic 100, fever 103.2, WBC 15.5, tachypnea 32 Submandibular/sialadenitis - US: Right submandibular subQ inflammation with linear tract. May represent sialadenitis. - CT: Cellulitis of mental/submental region with focal area of organizing complex fluid such as phlegmon at right submental 1.5cm. Drainable abscess not demonstrated. - Cefepime and Vanc as above - Continue warm compresses & bactoban - Continue to monitor Current Incarceration - UDS neg - Need to rule out TB with cavitary lesions Code Status: Full code <Gilma Garcia - Last Filed: 03/12/18 09:12> Attending Addendum - Attending Addendum Date/Time: 03/12/181816 I personally evaluated the patient and discussed the management with Dr. Garcia I agree with the History, Examination, Assessment and Plan documented above with any addition or exceptions noted below. 43 yo male admitted for pneumonia. Stable. No acute changes over night. Pulm following. Bronch likley in AM. Continue current antibiotics. Will I&D abscess today. ABrayMD <Ivis Collazo - Last Filed: 03/16/18 18:35>
[2018-03-12] MEDS: Enoxaparin Sodium 40 MG/0.4 ML SYRINGE SC SCH (08:47)
[2018-03-12] MEDS: Mupirocin 2% Ointment 22 GM Tube TOP SCH ×2 (08:48→21:08)
[2018-03-12] MEDS ORDERED: Lidocaine 1% w/Epinephrine 1:100K 20 ML VIAL FS SCH (14:45)
--- NOTE | 2018-03-12 15:55 | PRG ---
DATE OF SERVICE: 03/12/2018 SERVICE: Pulmonary Medicine. INTERVAL HISTORY: The patient is doing outstanding from a breathing standpoint. He is breathing comfortably. No chest pain, nausea, vomiting, fevers or chills. Otherwise, he has got no specific interval complaints. PHYSICAL EXAMINATION: VITAL SIGNS: Afebrile with T-max overnight of 101 degrees, pulse 74, blood pressure 119/71, respirations 16, saturation 94% on room air. GENERAL: The patient is awake, alert, no apparent distress. LUNGS: Decent air entry. There is no prolonged expiratory phase, wheezing, rhonchi, or crackles present. HEART: Normal rate, regular. ABDOMEN: Soft, nontender and nondistended. Bowel sounds are positive. MUSCULOSKELETAL: No cyanosis or clubbing. There is no pitting in the bilateral lower extremities. GENITOURINARY: No Simons. NEUROLOGIC: Grossly nonfocal. LABORATORY DATA: AFB smear is negative in 1. Blood cultures negative x2. ASSESSMENT: 1. Community-acquired pneumonia. 2. Coronary artery disease with cavitating lesions bilaterally in the upper lobes. 3. Cellulitis of the submental region. 4. Sepsis, improving. PLAN: I will continue empiric antibiotics. I will get a rheumatoid factor and ANCA tomorrow morning looking for any secondary causes of cavitary lesions. Will review the AFBs. If 3 remain negative, we will proceed with bronchoscopy with biopsy, first thing in the morning. Pulmonary Critical Care will continue to follow along while the patient remains in this location. BERT
[2018-03-12] MEDS: Sodium Chloride 0.9% 1,000 ML IV SCH (16:17)
[2018-03-13] MEDS: Cefepime 2 GM in Sodium Chloride 0.9% 100 ML IVPB SCH ×3 (00:38→17:10)
[2018-03-13] MEDS: Vancomycin HCl 1.25 GM in Sodium Chloride 0.9% 250 ML 250 ML IVPB SCH ×4 (00:38→20:36)
[2018-03-13] MEDS: guaiFENesin/Codeine Phosphate 200 mg/20 mg 10 ml UD Cup PO PRN (03:32)
--- NOTE | 2018-03-13 05:46 | PDOC.FM ---
- Subjective Subjective: Reports feeling well this morning. Denies Shortness of breath. Fevered twice yesterday evening. Reports cough has worsened causing him to have a headache. No other concerns. - Objective MAR Reviewed: Yes Vital Signs & Weight: Vital Signs (12 hours) Temp Pulse Resp BP Pulse Ox 03/12/18 20:00 99.2 F 74 16 97 03/12/18 19:13 99.2 F 74 16 126/79 03/12/18 17:53 100.5 F H Weight Admit Weight 86.183 kg Weight 86.183 kg I&O: 03/11/18 03/12/18 03/13/18 06:59 06:59 06:59 Intake Total 3730 3550 1520 Output Total 3430 4050 1475 Balance 300 -500 45 Result Diagrams: 03/12/18 04:16 03/12/18 04:16 <Gilma Garcia - Last Filed: 03/13/18 08:29> - Objective Vital Signs & Weight: Vital Signs (12 hours) Temp Pulse Resp BP Pulse Ox 03/14/18 08:05 98.1 F 63 16 103/66 95 03/14/18 02:00 99.3 F 94 L 03/13/18 20:15 99.3 F 78 16 94 L Weight Admit Weight 86.183 kg Weight 86.183 kg I&O: 03/13/18 03/14/18 03/15/18 06:59 06:59 06:59 Intake Total 1520 1630 Output Total 1475 1800 Balance 45 -170 Result Diagrams: 03/12/18 04:16 03/12/18 04:16 <Willie Last - Last Filed: 03/14/18 08:14> Phys Exam - Physical Examination Constitutional: NAD incision over submental space, no drainage or surrounding erthyma Respiratory: no wheezing, clear to auscultation bilateral Cardiovascular: RRR, no significant murmur Gastrointestinal: soft, non-tender, positive bowel sounds Psychiatric: normal affect, A&O x 3 <Gilma Garcia - Last Filed: 03/13/18 08:29> Dx/Plan (1) Pneumonia Code(s): J18.9 - PNEUMONIA, UNSPECIFIED ORGANISM Status: Ruled-out (3) Sepsis Code(s): A41.9 - SEPSIS, UNSPECIFIED ORGANISM Status: Acute (4) Incarceration Code(s): Z65.1 - IMPRISONMENT AND OTHER INCARCERATION Status: Chronic (5) Atypical chest pain Code(s): R07.89 - OTHER CHEST PAIN Status: Acute - Plan Plan: Staph Aureus Narcotizing pneumonia vs TB vs Vasculitis - Currently incarcerated - CTA: patchy infilatrates with cavitary lesions in apex - Urine legionella, Strep pneumo Ag, PPD skin test neg - HIV, RPR, Hep B & C neg - Sputum cultures neg x2 - AFB smear neg - Bld cx neg - Consulted Pulm, apprec recs - Pulm: likely submandibular infection became bacteremic and seated his lungs. Plan: - Cont Cefepime and Vanc - Guaifenesin PRN for cough - Quantiferon gold pending - Continues to fever, 101.2 yesterday @1500, 100.5 @1800 - Rheumatoid factor, ANCA, fungitell pending - Plan for bronch today with possible biopsy Sepsis 2/2 suspected pneumonia, resolved - Initially tachycardic 100, fever 103.2, WBC 15.5, tachypnea 32 Submandibular/sialadenitis - US: Right submandibular subQ inflammation with linear tract - CT: Cellulitis of mental/submental region with focal area of organizing complex fluid such as phlegmon at right submental 1.5cm. Drainable abscess not demonstrated. - Cefepime and Vanc as above - Continue warm compresses - I&D on 03/12/18 - Gram + cocci pairs - Continue to monitor Current Incarceration - UDS neg - Need to rule out TB with cavitary lesions Code Status: Full code <Gilma Garcia - Last Filed: 03/13/18 08:29> Attending Addendum - Attending Addendum Date/Time: 03/13/18 18:00 I personally evaluated the patient and discussed the management with Dr. Garcia. I agree with the History, Examination, Assessment and Plan documented above with any addition or exceptions noted below. States he is feeling better than on admission. Concerned about thight strand from chin lesion down ant right neck when he extends neck. Exam: Chin non-tender, no drainage but still indurated. Has what appears to be edema of platysma muscle in a cord down anterior right neck, not red or tender. Lungs: Rales in LLL post base that clear after several deep breaths. E-A change there in LLL posteriorly, as well. Blood cultures are negative. Chin grew Staph Aureus, Bronchoscopy done this morning - washing culture pending. Continue current antibiotic treatment. Doubt TB. More likely necrotizing Staph vs. Strep pneumonia. Chin abscess appears to be healing nicely. [facility] <Willie Last - Last Filed: 03/14/18 08:14>
[2018-03-13] MEDS: Ibuprofen 600 MG TAB PO PRN (06:35)
[2018-03-13] MEDS ORDERED: Lidocaine 1% (PF) 30 ML VIAL ONE (09:01)
[2018-03-13] MEDS ORDERED: Fentanyl 100 MCG/2 ML VIAL ONE (09:31)
[2018-03-13] MEDS ORDERED: Promethazine HCl 25 MG/ML VIAL SLOW IVP PRN (10:56)
[2018-03-13] MEDS ORDERED: Ondansetron HCl/PF 4 MG/2 ML Vial IVP PRN (10:56)
[2018-03-13] MEDS ORDERED: Promethazine HCl 25 MG/ML VIAL IM PRN (10:56)
[2018-03-13] MEDS ORDERED: Benzonatate 100 MG CAP PO PRN (11:09)
[2018-03-13 12:10] LABS: Vancomycin, Trough 15.5 ug/mL
[2018-03-13] MEDS: Enoxaparin Sodium 40 MG/0.4 ML SYRINGE SC SCH (12:38)
[2018-03-13] MEDS: Mupirocin 2% Ointment 22 GM Tube TOP SCH ×2 (12:38→20:40)
[2018-03-13] MEDS: Sodium Chloride 0.9% 1,000 ML IV SCH (12:40)
[2018-03-13] MEDS ORDERED: PHENYLEPHRINE-NS 100 MCG/ML 10 ML SYRINGE ONE (13:38)
[2018-03-13] MEDS ORDERED: ePHEDrine/0.9% NaCl/PF SYRINGE 50 mg/10 ml ONE (13:38)
[2018-03-13] MEDS ORDERED: PROPOFOL 200 MG/20 ML VIAL ONE (13:38)
[2018-03-13] MEDS ORDERED: Lidocaine 1% PF 5 ML VIAL ONE (13:38)
[2018-03-13] MEDS ORDERED: Succinylcholine Chloride 20 MG/ML 10 ml SYRINGE FS ONE (13:38)
[2018-03-13 15:06] LABS: BF Color Colorless; BF RBC Count - Manual 965 /cumm; BF WBC/Nonhematics Ct. - Manua 460 /cumm; Body Fluid Source Bronchioalveol Lavag; Clarity Hazy (Clear); Tube # EDTA
[2018-03-13 15:31] LABS: Cytoplasmic (C-ANCA) <1:20 titer (Neg:<1:20); Myeloperoxidase AutoAbs <9.0 U/mL (0.0-9.0); Perinuclear (P-ANCA) <1:20 titer (Neg:<1:20); Proteinase-3 AutoAbs Less than 3.5 U/mL (0.0-3.5)
[2018-03-13 15:40] LABS: BF Segmented Neutrophils 68 %; Cell Count Non Hematic 10 %; Eosinophils 6 %; Lymphocytes 16 %
--- NOTE | 2018-03-13 18:22 | PRG ---
DATE OF SERVICE: 03/13/2018 SERVICE: Pulmonary Medicine. INTERVAL HISTORY: The patient is doing fine from a respiratory standpoint. He is breathing comfortably. He is coughing up a little bit of yellow phlegm. Outside of that, there has been no interval change to his condition. PHYSICAL EXAMINATION: VITAL SIGNS: Afebrile currently with a T-max overnight of 100.5. Pulse 67, blood pressure 119/67, respirations 18, saturation 95% on room air. GENERAL: The patient is awake and alert, in no apparent distress. LUNGS: Excellent air entry. There is no prolonged expiratory phase or wheezing present. HEART: Normal rate, regular. ABDOMEN: Soft, nontender, nondistended. Bowel sounds are positive. MUSCULOSKELETAL: No cyanosis or clubbing. There is no pitting in the bilateral lower extremities. NEUROLOGIC: Grossly nonfocal. LABORATORY DATA: Segmented neutrophils predominate. There are significant red blood cells as well as white blood cells. ANCA profile is unremarkable. Rheumatoid factor currently pending. Staph aureus is growing in the chin aspirate. AFB smear is negative x1. Blood cultures x4 negative to date. ASSESSMENT: 1. Community-acquired pneumonia. 2. Cavitary lesions in bilateral upper lobes. 3. Cellulitis of the submental region. 4. Sepsis, improving. DISCUSSION AND PLAN: We are going to continue our empiric antibiotics. ANCAs are unremarkable. Rheumatoid factor currently pending. He has generated one sputum which was negative for AFB. He is having a hard time generating any additional samples. As such, we are going down for bronchoscopy today. If AFB smear is negative, we can discontinue airborn precautions. My suspicion is that we are dealing with a Staph aureus related cavitary disease in the biapical region. That being said, inflammatory, other infectious processes, and neoplastic processes are still within our differential. He will require repeat CT of the chest in roughly 6 weeks to follow up the infiltrates and cavitary disease to make certain or not progressing. Pulmonary or Critical Care will continue to follow along while he remains in house. BERT
--- NOTE | 2018-03-13 18:52 | OP ---
DATE OF PROCEDURE: 03/13/2018 SERVICE: Pulmonary Medicine. PROCEDURES: Fiberoptic bronchoscopy with: 1. Visual airway inspection. 2. Endobronchial brush from the right upper lobe. 3. Bronchoalveolar lavage from the right upper lobe. 4. Transbronchial biopsies from the right upper lobe. PREPROCEDURE DIAGNOSES: 1. Community-acquired pneumonia. 2. Pulmonary cavities. POSTPROCEDURE DIAGNOSES: 1. Community-acquired pneumonia. 2. Pulmonary cavities. PROCEDURE DISTRICT WILDLIFE MANAGER: Sergio Mccrary M.D. MEDICATIONS USED: For list of medications, refer to anesthesia documentation. PREANESTHESIA ASSESSMENT: The H&P had been performed. The patient's medications and allergies were reviewed. Informed consent was obtained after discussing risks, benefits, and rationale for performing the procedure as well as alternative options. DESCRIPTION OF PROCEDURE: A timeout was performed identifying the correct procedure and patient with name and date of . A diagnostic fiberoptic bronchoscope was introduced through the 8.0 endotracheal tube. A tracheobronchial tree inspection was carried out with clear identification of the right upper lobe, right middle lobe, right lower lobe, left upper lobe, left lower lobe, and lingula. Anatomy was normal to the segmental level. Bronchioalveolar lavage was obtained from the right upper lobe. This actually liberated significant amounts of purulent material extending from the apical segment. Endobronchial brushing was obtained from the apical segment of the right upper lobe. Unfortunately, I could not get the biopsies forceps into the segment that I wanted to. I did take a random transbronchial biopsies, but it is unlikely that these were from our area of interest. Unfortunately, I could not make this a very acute turn with the bronchoscope, particularly with the previously noted tool in place. Hemostasis was verified and the bronchoscope was subsequently removed from the patient. Post-procedure fluoroscopy did not demonstrate a pneumothorax. FINDINGS: 1. No endobronchial disease was identified. 2. Secretions were thick, and purulent yellow coming from the apical segment of the right upper lobe. SPECIMENS OBTAINED: 1. Endobronchial brushing from the apical segment of the right upper lobe, 2. Transbronchial biopsy from an area not of interest in the right upper lobe ( could not turn a tight corner with the biopsy forceps). 2. BAL for microbiology and pathology from the right upper lobe. COMPLICATIONS: None. ESTIMATED BLOOD LOSS: Less than 2 mL FLUOROSCOPY TIME: Two minutes. DISPOSITION: The patient will be transitioned back to the floor once he meets criteria in the postanesthesia care unit. BERT
[2018-03-14] MEDS: Cefepime 2 GM in Sodium Chloride 0.9% 100 ML IVPB SCH ×3 (01:30→16:56)
[2018-03-14] MEDS: guaiFENesin/Codeine Phosphate 200 mg/20 mg 10 ml UD Cup PO PRN (01:50)
[2018-03-14] MEDS: Ibuprofen 600 MG TAB PO PRN ×2 (01:50→20:14)
[2018-03-14] MEDS: Vancomycin HCl 1.25 GM in Sodium Chloride 0.9% 250 ML 250 ML IVPB SCH ×3 (05:23→20:15)
--- NOTE | 2018-03-14 05:38 | PDOC.FM ---
- Subjective Subjective: Pt reports being sore from coughing. Doesn't feel well today. Denies fever, chills. Stooling and voiding. - Objective MAR Reviewed: Yes Vital Signs & Weight: Vital Signs (12 hours) Temp Pulse Resp BP Pulse Ox 03/14/18 02:00 99.3 F 94 L 03/13/18 20:15 99.3 F 78 16 94 L 03/13/18 19:56 99.3 F 78 16 116/72 94 L Weight Admit Weight 86.183 kg Weight 86.183 kg I&O: 03/12/18 03/13/18 03/14/18 06:59 06:59 06:59 Intake Total 3550 1520 Output Total 4050 1475 Balance -500 45 Result Diagrams: 03/12/18 04:16 03/12/18 04:16 <Gilma Garcia - Last Filed: 03/14/18 08:36> - Objective Vital Signs & Weight: Weight Admit Weight 86.183 kg Weight 86.183 kg I&O: 03/16/18 03/17/18 03/18/18 06:59 06:59 06:59 Intake Total 480 Balance 480 Result Diagrams: 03/12/18 04:16 03/12/18 04:16 <Ivis Collazo - Last Filed: 03/17/18 14:51> Phys Exam - Physical Examination Constitutional: NAD Respiratory: wheezing present rhonchi Cardiovascular: RRR, no significant murmur Psychiatric: normal affect, A&O x 3 <Gilma Garcia - Last Filed: 03/14/18 08:36> Dx/Plan (1) Pneumonia Code(s): J18.9 - PNEUMONIA, UNSPECIFIED ORGANISM Status: Ruled-out (2) Cellulitis Code(s): L03.90 - CELLULITIS, UNSPECIFIED Status: Acute (3) Sepsis Code(s): A41.9 - SEPSIS, UNSPECIFIED ORGANISM Status: Acute (4) Incarceration Code(s): Z65.1 - IMPRISONMENT AND OTHER INCARCERATION Status: Chronic - Plan Plan: Staph Aureus Narcotizing pneumonia vs TB vs Vasculitis - Currently incarcerated - CTA: patchy infiltrates with cavitary lesions in apex - Urine legionella, Strep pneumo Ag, PPD skin test neg - HIV, RPR, Hep B & C neg - Sputum cultures neg x2 - AFB smear neg - Bld cx neg x4 - Consulted Pulm, apprec recs - Pulm: likely submandibular infection became bacteremic and seated his lungs. Plan: - Cont Cefepime and Vanc - Guaifenesin PRN for cough - Quantiferon gold pending - Rheumatoid factor, ANCA labs neg - Bronch 03/14: sign amts of thick purulent yellow material extending from apical segment. - Cultures and biopsies pending Sepsis 2/2 suspected pneumonia, resolved - Initially tachycardic 100, fever 103.2, WBC 15.5, tachypnea 32 Submandibular Cellulitis - US: Right submandibular subQ inflammation with linear tract - CT: Cellulitis of mental/submental region with focal area of organizing complex fluid such as phlegmon at right submental 1.5cm. Drainable abscess not demonstrated. - Cefepime and Vanc as above - Continue warm compresses - I&D on 03/12/18 - Culture: Staph Aureus - Continue to monitor Current Incarceration - UDS neg - Need to rule out TB with cavitary lesions Code Status: Full code <Gilma Garcia - Last Filed: 03/14/18 08:36> Attending Addendum - Attending Addendum Date/Time: 03/14/18 1444 I personally evaluated the patient and discussed the management with Dr. Garcia I agree with the History, Examination, Assessment and Plan documented above with any addition or exceptions noted below. s/p I&D. s/p bronch. Awaiting cultures. Monitor for fevers and worsening signs of infection. No evidence of seeding at this time. Pulm following. Continue current antibx. ABrayMD <Ivis Collazo - Last Filed: 03/17/18 14:51>
[2018-03-14] MEDS: Sodium Chloride 0.9% 1,000 ML IV SCH (06:09)
[2018-03-14 07:10] LABS: CCP IgG Antibody 1.3 EliAU/mL (<7 Negative); EliA RAS New Method **** NEW METHOD ****; Rheumatoid Factor IgA Antibody 8.1 IU/mL (<14 Negative); Rheumatoid Factor IgM Antibody 1.5 IU/mL
[2018-03-14] MEDS: Enoxaparin Sodium 40 MG/0.4 ML SYRINGE SC SCH (09:02)
[2018-03-14] MEDS: Mupirocin 2% Ointment 22 GM Tube TOP SCH ×2 (09:05→20:15)
--- NOTE | 2018-03-14 15:53 | PRG ---
DATE OF SERVICE: 03/14/2018 SERVICE: Pulmonary Medicine. INTERVAL HISTORY: The patient is doing fine from a respiratory standpoint. Overnight, he had some m yalgia and malaise. This likely associated with . He did not have any fever per se. He denies any chest pain, nausea, vomiting, fevers or chills. He is coughing up some clear sputum, which is n ot unexpected. PHYSICAL EXAMINATION: VITAL SIGNS: Afebrile, pulse 63, blood pressure 103/66, respirations 16, saturation 95% on room air. GENERAL: The patient is awake and alert, in no apparent distress. LUNGS: Excellent air entry. Some rhonchi are present, but clear with cough. HEART: Normal rate, regular. ABDOMEN: Soft, nontender, nondistended. Bowel sounds are positive. MUSCULOSKELETAL: No cyanosis or clubbing. No pitting in the bilateral lower extremities. NEUROLOGIC: Grossly nonfocal. LABORATORY DATA: The BAL specimen is positive for significant number of neutrophils. There are many white blood cells as well as red blood cells in the sample. Rheumatoid factor, and ANCA studies are all unremarkable. The BAL has gram-positive cocci in pairs present with moderate amount of white bl ood cells and rare epithelial cells. Staph aureus is growing out of the chin. The AFB smear is negat obed. ASSESSMENT: 1. Community-acquired pneumonia, likely secondary to Staphylococcus aureus. 2. Cavitary lesions in bilateral upper lobes. 3. Cellulitis of the submental region. 4. Sepsis, resolved. DISCUSSION AND PLAN: Since the BAL specimen was negative for AFB, we can discontinue our airborne pr ecautions. This is unlikely to represent tuberculosis and even if it is, he is not likely to be too t erribly infectious. Because of the cavitating nature of these lesions, he needs to be on appropriate antibiotics for at least 2 weeks from today. Sensitivities are currently pending. If he needs an I V medication, PICC line will need to be placed. We will follow up on the culture results to make cer tain that AFB organisms do not grow. He needs to follow up with Dr. Sorensen in 6 weeks with an outpati ent noncontrasted CT scan of the chest to reevaluate these cavities and make certain they are regress ing. Certainly if things get worse through time, we are going to have consider more aggressive inter ventions. I believe the brush specimen got into our area of interest, but unfortunately, I could not get transbronchial biopsies from the area of interest. At this point, he has no further requirement s for inpatient Pulmonary or Critical Care opinion and I will sign off. Please call with additional questions or concerns.
[2018-03-15] MEDS: Cefepime 2 GM in Sodium Chloride 0.9% 100 ML IVPB SCH (01:10)
[2018-03-15] MEDS: Vancomycin HCl 1.25 GM in Sodium Chloride 0.9% 250 ML 250 ML IVPB SCH ×2 (04:30→14:48)
--- NOTE | 2018-03-15 06:06 | PDOC.FM ---
- Subjective Subjective: Patient is feeling better and reports cough has improved. Denies fever, chills, joint pain/tenderness. - Objective MAR Reviewed: Yes Vital Signs & Weight: Vital Signs (12 hours) Temp Pulse Resp BP Pulse Ox 03/15/18 04:00 98.9 F 59 L 20 117/77 93 L 03/15/18 00:00 99.5 F 58 L 20 125/71 95 03/14/18 20:15 100.2 F H 61 20 95 03/14/18 20:00 100.2 F H 61 20 161/78 H 96 Weight Admit Weight 86.183 kg Weight 86.183 kg I&O: 03/13/18 03/14/18 03/15/18 06:59 06:59 06:59 Intake Total 1520 1630 Output Total 1475 1800 Balance 45 -170 Result Diagrams: 03/12/18 04:16 03/12/18 04:16 <Gilma Garcia - Last Filed: 03/15/18 10:21> - Objective Vital Signs & Weight: Vital Signs (12 hours) Temp Pulse Resp BP BP BP Pulse Ox 03/15/18 12:03 98.9 F 61 16 120/80 95 03/15/18 08:00 98.8 F 66 18 94 L 03/15/18 07:13 98.8 F 66 18 140/83 94 L 03/15/18 04:00 98.9 F 59 L 20 117/77 93 L Weight Admit Weight 86.183 kg Weight 86.183 kg I&O: 03/14/18 03/15/18 03/16/18 06:59 06:59 06:59 Intake Total 1630 1150 480 Output Total 1800 1050 Balance -170 100 480 Result Diagrams: 03/12/18 04:16 03/12/18 04:16 <Ayden Davenport - Last Filed: 03/15/18 13:36> Phys Exam - Physical Examination Constitutional: NAD Respiratory: no wheezing, clear to auscultation bilateral Cardiovascular: RRR, no significant murmur Gastrointestinal: soft, non-tender Musculoskeletal: no edema No joint pain with ROM Psychiatric: normal affect, A&O x 3 <Gilma Garcia - Last Filed: 03/15/18 10:21> Dx/Plan (1) Pneumonia Code(s): J18.9 - PNEUMONIA, UNSPECIFIED ORGANISM Status: Ruled-out (2) Cellulitis Code(s): L03.90 - CELLULITIS, UNSPECIFIED Status: Acute (3) Sepsis Code(s): A41.9 - SEPSIS, UNSPECIFIED ORGANISM Status: Acute (4) Incarceration Code(s): Z65.1 - IMPRISONMENT AND OTHER INCARCERATION Status: Chronic (5) MRSA (methicillin resistant staph aureus) culture positive Code(s): Z22.322 - CARRIER OR SUSPECTED CARRIER OF METHICILLIN RESIS STAPH Status: Acute - Plan Plan: Staph Aureus Narcotizing pneumonia vs TB vs Vasculitis - CTA: patchy infiltrates with cavitary lesions in apex - HIV, RPR, Hep B & C neg - Vasculitis w/o neg - Sputum cultures neg, AFB smear neg, Bld cx neg x4 - Consulted Pulm, apprec recs - Pulm: likely submandibular infection became bacteremic and seated his lungs, both cx MRSA - Bronch 03/14: sign amts of thick purulent yellow material extending from apical segment. - Cx: MRSA - Biopsies pending Plan: - Cont Vanc - D/c Cefepime - Guaifenesin PRN for cough - Quantiferon gold pending (PPD skin test neg) - Cont Antibiotics for 2 wks - F/u with Dr Sorensen in [address] with outpt noncontrast CT - Encouraged to sit in chair and walk around room Sepsis 2/2 suspected pneumonia, resolved - Initially tachycardic 100, fever 103.2, WBC 15.5, tachypnea 32 Submandibular Cellulitis - US: Right submandibular subQ inflammation with linear tract - CT: Cellulitis of mental/submental region with focal area of organizing complex fluid such as phlegmon at right submental 1.5cm. Drainable abscess not demonstrated. - Vanc as above, d/c cefepime - Continue warm compresses - I&D on 03/12/18 - Culture: MRSA - Continue to monitor Current Incarceration - UDS neg - Need to rule out TB with cavitary lesions Code Status: Full code <Gilma Garcia - Last Filed: 03/15/18 10:21> Attending Addendum - Attending Addendum Date/Time: 03/15/18 4532 I personally evaluated the patient and discussed the management with Dr. Garcia I agree with the History, Examination, Assessment and Plan documented above with any addition or exceptions noted below. Appreciate Critical care recs and note followup with CT and Pulmonary at 6 weeks. Wiil ask ID consult for route and choice further antibiotics in regard Cavitary pneumonia with MRSA anticipating disposition planning. <Ayden Davenport - Last Filed: 03/15/18 13:36>
[2018-03-15] MEDS: Mupirocin 2% Ointment 22 GM Tube TOP SCH (08:58)
[2018-03-15] MEDS: Enoxaparin Sodium 40 MG/0.4 ML SYRINGE SC SCH (08:58)
[2018-03-15 12:03] VITALS: BP 120/80; TEMP 98.9
[2018-03-15] MEDS ORDERED: Vancomycin HCl 1 GM in Premix Bag 1 BAG IVPB SCH (14:00)
[2018-03-16 13:11] LABS: Fungus Stain Final report (.)
--- NOTE | 2018-03-18 09:34 | DIS-2 ---
DATE OF ADMISSION: 03/08/2018 DATE OF DISCHARGE: 03/15/2018 RESIDENT: Gilma Garcia, PGY1. ADMITTING ATTENDING: Dragan Bailey MD DISCHARGE ATTENDING: Ayden Davenport MD CONSULTATIONS: 1. Pulmonology. PROCEDURES: 1. Soft tissue ultrasound of the neck showing right submandibular, submental subcutaneous inflammation with a linear tract. 2. Soft tissue neck CT showing cellulitis of the omental submental region with focal areas of organizing complex fluid such as phlegmon, well-formed drainable abscess not demonstrated and progresses abnormalities including cavitary lesions and consolidation of the upper lung zones. 3. Chest thorax CTA showing no evidence of pulmonary embolism, scattered patchy focal areas of consolidation with some cavitation. 4. Bronchoscopy showing no endobronchial disease, thick secretions and purulent and yellow coming from the apical segment of the right upper lobe. Biopsies taken and BAL for microbiology PRIMARY DIAGNOSES: 1. Staph aureus necrotizing pneumonia. 2. Cellulitis. SECONDARY DIAGNOSES: 1. Sepsis, resolved. 2. Incarceration. 3. Methicillin-resistant Staphylococcus aureus positive culture. DISCHARGE MEDICATIONS: 1. Bactroban 2% ointment twice daily for 1 week. 2. I will send him on DuoNeb 3 mL nebulized p.r.n. for shortness of breath. 3. Linezolid 600 mg b.i.d. for 14 days. DISCONTINUED MEDICATIONS: None. HISTORY OF PRESENT ILLNESS AND HOSPITAL COURSE: Mr. Soria is a 43-year-old previously healthy incarcerated male presenting with 1-day of "lung pain" and a bump on his chin that started a day prior to the lung pain that he attributed to a bug bite. At admission he met sepsis criteria with fever, tachycardia, tachypnea and a leukocytosis. CTA showed cavitary lesions concerning for TB or pneumonia. He was started on Cefepime and vancomycin. Urine legionella strep pneumo and PPD skin test were negative. He was screened for HIV, syphilis, hepatitis B and C, These were negative. Sputum cultures were negative. AFB smear was negative and blood cultures were all negative. We consulted pulmonology for further recommendations. Pulmonology ordered rheumatoid factor and ANCA labs, these were negative. I&D on submandibular abscess was performed on 03/12/2018 with resulting cultures of MRSA. He went for a bronchoscopy on 04/2018 showing significant amounts of thick purulent yellow material extending from the apical segment. Cultures and biopsies were obtained, resulting with MRSA. His showed clinical improvement throughout hospital stay and was afebrile >48hrs prior to discharge. It was thought that these cavitary lung lesions were likely result of a submandibular infection that became transiently bacteremic and seated in his lungs and less likely to be a TB infection. He was discharged on 2 weeks of linezolid once sensitivities is resulted and to continue warm compresses and Bactroban for his submandibular abscess. DISPOSITION: Stable. DISCHARGE INSTRUCTIONS: 1. Location: [place]. 2. Diet: Regular. 3. Activity: No restrictions. 4. Follow up with Dr. Sorensen in 6 weeks with outpatient noncontrast CT. [facility]
== END 2018-03-15 17:43 | DRG 853 ==
LOC: ERS 20:48 → EEVIPCON 20:48 → T4-A 03-08 01:30 → OBSVTOIN 03-08 01:30
PROVIDERS: ADMIT Family Medicine; ATTEND Family Medicine
PROC: 0B9C8ZX Drainage of Right Upper Lung Lobe, Via Natural or Artificial Opening Endoscopic, Diagnostic (ICD-10-PCS; principal; 2018-03-13)
PROC: 0BBC8ZX Excision of Right Upper Lung Lobe, Via Natural or Artificial Opening Endoscopic, Diagnostic (ICD-10-PCS; 2018-03-13)
DX: A41.9 Sepsis, unspecified organism (principal); J15.212 Pneumonia due to Methicillin resistant Staphylococcus aureus; J85.0 Gangrene and necrosis of lung; L03.221 Cellulitis of neck; K11.20 Sialoadenitis, unspecified; K52.9 Noninfective gastroenteritis and colitis, unspecified; I25.10 Atherosclerotic heart disease of native coronary artery without angina pectoris; E66.9 Obesity, unspecified; Z68.31 Body mass index [BMI] 31.0-31.9, adult; Z87.891 Personal history of nicotine dependence
CPT/HCPCS: 36415; 70491; 71045; 71275; 76000; 76999; 80048; 80202; 80306; 81003; 82150; 83520; 83605; 84484; 85025; 85060; 85652; 86200; 86256; 86480; 86580; 86704; 86706; 86780; 86803; 87040; 87070; 87077; 87102; 87116; 87186; 87205; 87206; 87340; 87389; 87449; 87899; 88104; 88112; 88305; 88312; 89051; 89220; 93005; 94640; 96365; 96367; 96372; A4216; J0692; J1650; J1885; J2001; J2704; J3010; J3370; J7050